=== PATIENT | male | born 1965 | race Caucasian/White ===

== ENCOUNTER 2023-10-01 18:10 | Inpatient (IN) ==
[2023-10-01] MEDS ORDERED: IOPAMIDOL 100 ML BOTTLE IV ONE (18:11)
[2023-10-01 19:22] LABS: Basophils # (Auto) 0.01 K/mcL (0.00-0.30); Basophils % (Auto) 0.1 % (0.0-2.0); Eosinophils # (Auto) 0.05 K/mcL (0.00-0.70); Eosinophils % (Auto) 0.4 % (0.0-7.0); Hematocrit 45.1 % (40.1-51.0); Hemoglobin 15.4 g/dL (13.7-17.5); Lymphocytes # (Auto) 1.26 K/mcL (1.50-4.80); Lymphocytes % (Auto) 9.7 % (15.5-49.0); Mean Corpuscular HGB Conc 34.1 g/dL (31.0-36.0); Mean Platelet Volume 10.2 fL (8.8-12.5); Monocytes # (Auto) 0.98 K/mcL (0.10-0.90); Monocytes % (Auto) 7.5 % (1.0-12.0); Neutrophils % (Auto) 82.1 % (38.0-78.0); Platelet Count 173 K/mcL (140-440); Red Cell Distribution Width 12.1 % (11.5-14.5)
[2023-10-01 19:39] LABS: ALT/SGPT 17 U/L (<40); AST/SGOT 24 U/L (<40); Albumin 4.4 gm/dL (3.2-5.2); Albumin/Globulin Ratio 1.6 (1.0-2.3); Alkaline Phosphatase 69 U/L (39-117); Bilirubin,Total 0.7 mg/dL (0.1-1.0); Blood Urea Nitrogen 13 mg/dL (6-20); Calcium 9.7 mg/dL (8.6-10.4); Carbon Dioxide 23 mmol/L (22-30); Chloride 100 mmol/L (96-108); Globulin 2.7 gm/dL (2.2-3.7); Glomerular Filtration Rate 95; Glucose 116 mg/dL (70-105)
[2023-10-01 19:40] LABS: C-Reactive Protein 2.82 mg/dL (0.03-0.80)
[2023-10-01] MEDS: metroNIDAZOLE 500 MG/100 ML BAG IV ONE (21:21)
[2023-10-01] MEDS: morphine 4 MG/ML VIAL IV ONE (21:22)
[2023-10-01] MEDS: 0.9 % SODIUM CHLORIDE 1,000 ML IV ONE (21:23)
[2023-10-01] MEDS: cefOXitin 2 GM VIAL IV ONE (21:57)
[2023-10-01] MEDS: HYDROmorphone 0.5 MG/0.5 ML SYRINGE IV PRN ×2 (22:10→23:12)
[2023-10-01] MEDS: PIPERACILLIN SODIUM/TAZOBACTAM 3.375 GM in DEXTROSE 5% IN WATER 100 ML IV SCH (22:19)
[2023-10-01] MEDS: KETOROLAC 15 MG/ML VIAL IV ONE (23:11)
[2023-10-02] MEDS: DEXTROSE 5%-LR 1,000 ML IV SCH (00:17)
[2023-10-02] MEDS: ACETAMINOPHEN 650 MG/65 ML BAG IV PRN (00:18)
[2023-10-02 07:38] LABS: Blood Urea Nitrogen 10 mg/dL (6-20); Calcium 8.6 mg/dL (8.6-10.4); Carbon Dioxide 24 mmol/L (22-30); Chloride 97 mmol/L (96-108); Glomerular Filtration Rate 74; Glucose 147 mg/dL (70-105)
[2023-10-02 08:06] LABS: Hematocrit 41.6 % (40.1-51.0); Mean Cell Volume 94.8 fL (80.0-100.0); Mean Corpuscular HGB Conc 33.7 g/dL (31.0-36.0); Mean Platelet Volume 10.7 fL (8.8-12.5); Platelet Count 139 K/mcL (140-440); RBC 4.39 M/mcL (4.63-6.08); Red Cell Distribution Width 12.3 % (11.5-14.5); WBC 11.7 K/mcL (4.5-11.0)
[2023-10-02 08:12] LABS: Appearance,Urine Clear (Clear); Bilirubin,Urine Negative (Negative); Color,Urine Yellow; Culture Indicated,Urine No; Glucose,Urine (UA) Negative (Negative); Ketones,Urine Negative (Negative); Leukocyte Esterase,Urine Negative /uL (Negative); Nitrate,Urine Negative (Negative); Protein,Urine Negative (Negative); Urine Blood Negative ery/mcL (Negative); Urobilinogen,Urine Normal
[2023-10-02] MEDS ORDERED: PROPOFOL 200 MG/20 ML VIAL IV ONE (09:25)
[2023-10-02] MEDS ORDERED: fentaNYL 100 MCG/2 ML VIAL ONE ×3 (09:25→11:14)
[2023-10-02] MEDS ORDERED: KETAMINE 50 MG/ML Syringe IV ONE (09:25)
[2023-10-02] MEDS ORDERED: ONDANSETRON 4 MG/2 ML VIAL ONE (09:26)
[2023-10-02] MEDS ORDERED: MAGNESIUM SULFATE 2 GM/50 ML BAG IV ONE (09:26)
[2023-10-02] MEDS ORDERED: DEXAMETHASONE 10 MG/ML VIAL ONE (09:26)
[2023-10-02] MEDS ORDERED: ROCURONIUM 10 MG/ML ML IV ONE (09:26)
[2023-10-02] MEDS ORDERED: LIDOCAINE 2% PF 5 ML VIAL ONE (09:26)
[2023-10-02] MEDS ORDERED: ONDANSETRON 4 MG/2 ML VIAL IV PRN (10:52)
[2023-10-02] MEDS ORDERED: METHOCARBAMOL 1,000 MG/10 ML VIAL IV PRN (10:52)
[2023-10-02] MEDS ORDERED: IPRATROPIUM/ALBUTEROL 3 ML AMPUL.NEB NEB PRN (10:52)
[2023-10-02] MEDS ORDERED: fentaNYL 100 MCG/2 ML VIAL IV PRN (10:52)
[2023-10-02] MEDS ORDERED: LACTATED RINGERS 250 ML IV PRN (10:52)
[2023-10-02] MEDS ORDERED: diphenhydrAMINE 50 MG/ML VIAL IV PRN (10:52)
[2023-10-02] MEDS ORDERED: NALOXONE HCL 0.4 MG/ML VIAL IV PRN (10:52)
[2023-10-02] MEDS ORDERED: PROMETHAZINE 25 MG/ML VIAL IV PRN (10:52)
[2023-10-02] MEDS ORDERED: MEPERIDINE 25 MG/ML VIAL IV PRN (10:52)
[2023-10-02] MEDS ORDERED: SUGAMMADEX SODIUM 200 MG/2 ML VIAL IV ONE (11:00)
[2023-10-02] MEDS: KETOROLAC 30 MG/ML VIAL IV PRN (11:55)
[2023-10-02] MEDS: LACTATED RINGERS 1,000 ML IV SCH (12:22)
[2023-10-03] MEDS: oxyCODONE IR 5 MG TABLET PO PRN (01:15)
[2023-10-03] MEDS: ONDANSETRON 4 MG/2 ML VIAL IV PRN (01:29)
[2023-10-03 07:13] LABS: Hematocrit 36.8 % (40.1-51.0); Hemoglobin 12.6 g/dL (13.7-17.5); Mean Cell Volume 93.4 fL (80.0-100.0); Mean Corpuscular HGB Conc 34.2 g/dL (31.0-36.0); Mean Platelet Volume 10.8 fL (8.8-12.5); Platelet Count 151 K/mcL (140-440); RBC 3.94 M/mcL (4.63-6.08); WBC 11.4 K/mcL (4.5-11.0)
[2023-10-03 07:39] LABS: Blood Urea Nitrogen 8 mg/dL (6-20); Calcium 8.3 mg/dL (8.6-10.4); Carbon Dioxide 24 mmol/L (22-30); Chloride 102 mmol/L (96-108); Glomerular Filtration Rate 99; Glucose 177 mg/dL (70-105)
[2023-10-03] MEDS: FAMOTIDINE/PF 20 MG/2 ML VIAL IV SCH (10:39)
== END 2023-10-04 11:10 | disposition home or self-care (01) | DRG 399 ==
LOC: ED 18:10 → MEDSUR 18:10 → OBSVTOIN 22:36 → INTOOBSV 22:39 → UNDODISIN 10-04 11:10
PROVIDERS: ADMIT Surgery Surgical Critical Care; ATTEND Surgery Surgical Critical Care
PROC: LAPAPPY (ICD-10-PCS; 2023-10-02 10:10)